=== PATIENT | female | born 1985 | race African-American/Black ===

== ENCOUNTER 2016-09-04 19:30 | Emergency (ER) | payer OTHER ==
[~2016-09-04] VITALS: Ht 162.6 cm; Wt 115.2 kg
[~2016-09-04 19:30] MED LIST: IOHEXOL-350 100 ML BOTTLE ONE; SODIUM CHLORIDE 0.9% 10ML VIAL ONE
[2016-09-04] MEDS ORDERED: SODIUM CHLORIDE 0.9% 1,000 ML IV ONE (22:43)
[2016-09-04] MEDS ORDERED: KETOROLAC 30MG/ML VIAL IV STA (22:43)
[2016-09-04] MEDS ORDERED: METOCLOPRAMIDE HCL 10MG/2ML VIAL IV ONE (22:45)
[2016-09-04] MEDS ORDERED: DIPHENHYDRAMINE 50MG/ML VIAL IV ONE (22:45)
[2016-09-04 23:05] LABS: BASOPHILS % 1.1 % (0.0-2.0); EOSINOPHILS % 1.3 % (0.0-5.0); HEMATOCRIT. 35.5 % (36.0-48.0); HEMOGLOBIN. 11.4 g/dL (12.0-16.0); LYMPHOCYTES % 37.5 % (20.0-50.0); MEAN CORPUSCULAR HEMOGLOBIN 27.8 pg (28.0-32.0); MEAN CORPUSCULAR HGB CONC 32.2 g/dL (31.0-37.0); MEAN CORPUSCULAR VOLUME 86.4 fL (81.0-99.0); MEAN PLATELET VOLUME 8.2 fl (7.4-10.4); MONOCYTES % 5.1 % (2.0-8.0); PLATELET 408 x1000/uL (130-400); RED BLOOD CELL COUNT 4.11 mill/uL (4.2-5.4); RED CELL DISTRIBUTION WIDTH 14.4 % (11.6-14.6); WHITE BLOOD COUNT 12.5 x1000/uL (4.5-11.0)
[2016-09-04 23:11] LABS: PROTHROMBIN TIME 10.9 sec
[2016-09-04 23:18] LABS: ALANINE AMINOTRANSFERASE 17 IU/L (13-61); ALBUMIN 3.8 g/dL (3.4-5.0); ANION GAP 10; CALCIUM 9.2 mg/dL (8.5-10.1); CARBON DIOXIDE 31 mEq/L (21-32); CHLORIDE 106 mEq/L (98-107); INDEX HEMOLYSI 1 (1-3); INDEX ICTERIC 1 (1-4); INDEX LIPEMIC 1 (1-3); UREA NITROGEN BLOOD 9 mg/dL (7-21); eGFR > 60 mL/min (>60)
[2016-09-04 23:20] LABS: HCG SCREEN NEGATIVE
[2016-09-04 23:42] LABS: CLARITY URINE TURBID (CLEAR); COLOR URINE YELLOW (YELLOW); GLUCOSE URINE NEGATIVE (NEGATIVE); KETONES URINE NEGATIVE (NEGATIVE); LEUKOCYTE ESTERASE URINE TRACE (NEGATIVE); NITRITE URINE NEGATIVE (NEGATIVE); OCCULT BLOOD URINE NEGATIVE (NEGATIVE); PH URINE 6.5 (4.5-8.0); PROTEIN URINE NEGATIVE (NEGATIVE); SPECIFIC GRAVITY URINE 1.027 (1.005-1.030)
[2016-09-04 23:59] LABS: SQUAMOUS EPITHELIAL CELL URINE 3+ /lpf (RARE/1+)
[2016-09-05] LABS: RBC URINE 0-2 /hpf (0-2)
[2016-09-05 00:01] LABS: BACTERIA URINE TRACE
[2016-09-05 00:02] LABS: TRICHOMONAS URINE FEW
[2016-09-05 02:01] VITALS: BP 157/96
== END 2016-09-05 03:10 | disposition home or self-care (01) ==
LOC: ER 19:30
DX: R51 Headache (principal); H53.8 Other visual disturbances; Z88.0 Allergy status to penicillin; F17.200 Nicotine dependence, unspecified, uncomplicated; F12.10 Cannabis abuse, uncomplicated; Z98.890 Other specified postprocedural states
CPT/HCPCS: 36415; 70496; 80053; 81001; 84703; 85025; 85610; 96361; 96374; 96375; 99285; A4216; J1200; J1885; J2765; J7030; Q9967; Z7610

== ENCOUNTER 2017-07-03 05:47 | Emergency (ER) | payer MEDICAID, OTHER ==
[~2017-07-03] VITALS: Ht 172.7 cm; Wt 113.0 kg
[2017-07-03] MEDS ORDERED: LORAZEPAM 2MG/ML CPJ IM STA (06:15)
[2017-07-03] MEDS ORDERED: OLANZAPINE 10 MG/VIAL IM ONE (07:00)
[2017-07-03 08:42] LABS: BASOPHILS % 0.3 % (0.0-2.0); HEMATOCRIT. 32.8 % (36.0-48.0); HEMOGLOBIN. 10.6 g/dL (12.0-16.0); LYMPHOCYTES % 14.3 % (20.0-50.0); MEAN CORPUSCULAR HEMOGLOBIN 27.6 pg (28.0-32.0); MEAN CORPUSCULAR VOLUME 85.5 fL (81.0-99.0); MEAN PLATELET VOLUME 8.6 fl (7.4-10.4); MONOCYTES % 5.5 % (2.0-8.0); NEUTROPHILS % 79.9 % (40.0-76.0); PLATELET 398 x1000/uL (130-400); RED BLOOD CELL COUNT 3.84 mill/uL (4.2-5.4); RED CELL DISTRIBUTION WIDTH 14.6 % (11.6-14.6)
[2017-07-03 08:47] LABS: CLARITY URINE CLOUDY (CLEAR); COLOR URINE YELLOW (YELLOW); KETONES URINE NEGATIVE (NEGATIVE); LEUKOCYTE ESTERASE URINE TRACE (NEGATIVE); NITRITE URINE NEGATIVE (NEGATIVE); OCCULT BLOOD URINE NEGATIVE (NEGATIVE); PH URINE 6.5 (4.5-8.0); PROTEIN URINE 1+ (NEGATIVE); UROBILINOGEN URINE 0.2 E.U./dL (0.2-1.0)
[2017-07-03 08:54] LABS: AMMONIA 31 uMol/L (<32)
[2017-07-03 09:04] LABS: CHLORIDE 107 mEq/L (98-107); CREATINE KINASE 553 IU/L (26-192); ETHANOL BLOOD < 10 mg/dL
[2017-07-03 09:15] LABS: *BARBITURATES SCREEN URINE NEGATIVE (NEGATIVE); *BENZODIAZEPINES SCREEN URINE NEGATIVE (NEGATIVE); *COCAINE SCREEN URINE NEGATIVE (NEGATIVE); METHADONE URINE SCREEN NEGATIVE (NEGATIVE); OPIATES URINE SCREEN NEGATIVE (NEGATIVE); PHENCYCLIDINE URINE SCREEN NEGATIVE (NEGATIVE)
[2017-07-03 09:29] LABS: *AMPHETAMINES SCREEN URINE PRESUMTIVE POSITIVE (NEGATIVE); CANNABINOID URINE SCREEN PRESUMTIVE POSITIVE (NEGATIVE)
[2017-07-03 13:30] VITALS: BP 115/65
== END 2017-07-03 14:52 | disposition home or self-care (01) ==
LOC: ER 05:47
DX: T43.621A Poisoning by amphetamines, accidental (unintentional), initial encounter (principal); R41.82 Altered mental status, unspecified; F12.10 Cannabis abuse, uncomplicated; Z88.0 Allergy status to penicillin
CPT/HCPCS: 36415; 51702; 70450; 80053; 80305; 80307; 80329; 81001; 81025; 82140; 82550; 84443; 85025; 93005; 96372; 99285; G0482; J2060; J3490

== ENCOUNTER 2017-09-01 05:52 | Emergency (ER) | payer MEDICAID ==
[~2017-09-01] VITALS: Ht 165.1 cm; Wt 109.0 kg
[2017-09-01 10:09] VITALS: BP 179/98
== END 2017-09-01 10:08 | disposition home or self-care (01) ==
LOC: ER 05:52
DX: T78.40XA Allergy, unspecified, initial encounter (principal); F17.200 Nicotine dependence, unspecified, uncomplicated; F12.10 Cannabis abuse, uncomplicated; Y92.89 Other specified places as the place of occurrence of the external cause; Z88.0 Allergy status to penicillin
CPT/HCPCS: 99283